=== PATIENT | female | born 1995 | race African-American/Black ===

== ENCOUNTER 2022-02-23 14:36 | Emergency (ER) | payer BC ==
--- NOTE | 2022-02-23 15:30 | NUR ---
CALLED TO TRIAGE, NO ANSWER
--- NOTE | 2022-02-23 16:19 | NUR ---
CALLED TO TRIAGE, NO ANSWER
== END 2022-02-23 16:23 | disposition left against medical advice (07) ==
LOC: ER 14:36
DX: Z53.21 Procedure and treatment not carried out due to patient leaving prior to being seen by health care provider (principal)